=== PATIENT | female | born 1970 | race Caucasian/White ===

== ENCOUNTER → 2017-05-10 | Outpatient (CLI) | payer OTHER | LOC: GMAJ 16:41 | PROVIDERS: ATTEND Family Medicine | DX: G25.81 Restless legs syndrome (principal) ==

== ENCOUNTER → 2017-06-21 | Outpatient (CLI) | payer OTHER | LOC: GMAJ 16:58 | PROVIDERS: ATTEND Family Medicine | DX: D50.8 Other iron deficiency anemias (principal) ==

== ENCOUNTER → 2017-10-10 | Outpatient (CLI) | payer OTHER | END | disposition home or self-care (01) | LOC: GMAJ 10:52 | PROVIDERS: ATTEND Family Medicine | DX: D50.8 Other iron deficiency anemias (principal) ==

== ENCOUNTER → 2018-11-26 | Outpatient (CLI) | payer OTHER ==
--- NOTE | 2018-11-26 13:28 | US ---
US THYROID CLINICAL STATEMENT: NODULE. . No complaints. No prior thyroid surgery or therapy. COMPARISON: None FINDINGS: Size right thyroid lobe: 4.5 x 2.1 x 1.4 cm Size left thyroid lobe: 5.0 x 1.9 x 1.9 cm Size isthmus: 0.27 cm Estimated total number of nodules greater than or equal to 1 cm: 3. Overall heterogeneity of the bilateral lobes with other smaller nodules. Nodule 1: Size: 0.6 x 0.8 x 0.5 cm Location: Right Mid Composition: solid or almost completely solid: 2 points Echogenicity: hypoechoic: 2 points Shape: wider than tall: 0 points Margins: smooth: 0 points Echogenic foci: none: 0 points ACR Total Points: 4; ACR TI-RADS risk category: TR4 - moderately suspicious nodule. Nodule 2: Size: 1.0 x 1.0 x 0.9 cm Location: Right Lower Composition: solid or almost completely solid: 2 points Echogenicity: hypoechoic: 2 points Shape: wider than tall: 0 points Margins: smooth: 0 points Echogenic foci: none: 0 points ACR Total Points: 4; ACR TI-RADS risk category: TR4 - moderately suspicious nodule. Nodule 3: Size: 2.0 x 1.7 x 1.3 cm Location: Left Upper Composition: solid or almost completely solid: 2 points Echogenicity: hypoechoic: 2 points Shape: wider than tall: 0 points Margins: smooth: 0 points. Hypoechoic rim. Minimally vascular. Echogenic foci: none: 0 points ACR Total Points: 4; ACR TI-RADS risk category: TR4 - moderately suspicious nodule. Nodule 4: Size: 1.3 x 1.1 x 0.7 cm Location: Left Lower Composition: solid or almost completely solid: 2 points Echogenicity: hypoechoic: 2 points Shape: wider than tall: 0 points Margins: ill-defined: 0 points Echogenic foci: none: 0 points ACR Total Points: 4; ACR TI-RADS risk category: TR4 - moderately suspicious nodule. The soft tissues around the thyroid gland show no dominant solid mass or distinct cyst. No parenchymal edema or large calcifications. No overlying skin changes. Normal vascularity. IMPRESSION: 1. Nodule 1: ACR TI-RADS 2017 Category TR4. Recommend: No further follow-up.. Recommendations based upon [facility] Best [facility] recommendations and ACR TI-RADS 2017 guidelines. Please see below*. 2. Nodule 2: ACR TI-RADS 2017 Category TR4. Recommend: Follow-up ultrasound in 1 year. 3. Nodule 3: ACR TI-RADS 2017 Category TR4. Recommend: Ultrasound-guided fine needle aspiration 4. Nodule 4: ACR TI-RADS 2017 Category TR4. Recommend: Follow-up ultrasound in 1 year. The soft tissues around the thyroid gland are unremarkable. *ACR TI-RADS 2017 Recommendations: TR1: No FNA or follow up TR2: No FNA or follow up TR3: FNA if >/= 2.5 cm, follow up if 1.5 - 2.4 cm in 1, 3, and 5 years TR4: FNA if >/= 1.5 cm, follow up if 1.0 - 1.4 cm in 1, 2, 3, and 5 years TR5: FNA if >/= 1.0 cm, follow up if 0.5 - 0.9 cm every year for 5 years ACR TI-RADS recommends that no more than two nodules with the highest ACR TI-RADS total point should be biopsied and no more than four nodules should be followed. Electronically signed by: Lorne Newton MD 11/26/2018 1:26 PM BUSINESS ANALYST INTERN
== END ==
LOC: US 10:25
PROVIDERS: ATTEND Family Medicine
DX: E04.1 Nontoxic single thyroid nodule (principal)

== ENCOUNTER → 2020-11-15 | Outpatient (CLI) | payer BC ==
--- NOTE | 2020-11-16 16:31 | MAM ---
EXAM DESCRIPTION: 3D Screening BILATERAL : Digital Mammography. CLINICAL HISTORY: 50 years Female ANNUAL SCREENING . No complaints and no family history of breast cancer. Menarche age 16. Childbirth age 26. Menopause age unknown. Currently on HRT. Lifetime risk of developing breast cancer (Tyrer-Cuzick model)(%): 7.7. COMPARISON: Bilateral screening digital breast 2-D imaging December 2015. No prior reports available. TECHNIQUE: Bilateral CC and MLO projection full-field images, digital tomosynthesis mammographic technique. Bilateral digital 2-D full-field MLO images. CAD available for 2-D images. FINDINGS: The breast parenchymal density pattern is: Heterogeneously dense breast tissue, which may obscure small masses. Fibroglandular tissues have decreased with increasing fatty tissue since the prior study. Axillary nodes. Intramammary Nodes in the lateral breast. Solitary microcalcifications. No skin thickening or nipple retraction No new focal, stellate mass or density, focal asymmetry , and no suspicious microcalcifications bilaterally. IMPRESSION: Benign exam. BIRAD CATEGORY: 2 BENIGN FINDINGS. RECOMMENDATIONS: FOLLOW UP: Routine digital bilateral mammographic screening, one year interval from November 2020. Written communication explaining the IMPRESSION and follow-up, will be mailed to the patient and referring health care provider. According to the [employer], yearly mammograms are recommended starting at age 40 and continuing as long as a woman is in good health. Any breast change noted on a breast self-exam should be reported promptly to the patient's healthcare provider. Breast MRI is recommended for women with an approximately 20-25% or greater lifetime risk of breast cancer, including women with a strong family history of breast or ovarian cancer and women who have been treated for Hodgkin's disease. A negative mammographic report should not delay tissue diagnosis in patients with significant clinical history or physical findings. Extremely dense breast tissue limits the sensitivity of digital mammography. Electronically signed by: Lorne Newton MD 11/16/2020 4:29 PM DRAWER IN [employer]
== END ==
LOC: MAMMO 13:31
PROVIDERS: ATTEND Family Medicine
DX: Z12.31 Encounter for screening mammogram for malignant neoplasm of breast (principal)